=== PATIENT | female | born 1990 | race Caucasian/White ===

== ENCOUNTER 2020-08-13 10:18 | Outpatient (REF) | payer OTHER, SELFPAY ==
[2020-08-13 11:10] LABS: Baso%MD 0.8 %; Eos%MD 4.1 %; Hematocrit 36.6 % (37-47); Hemoglobin 11.6 g/dl (12.0-16.0); IG%MD 0.2 %; Lymph%MD 35.5 %; Mean Corpuscular HGB Conc 31.7 g/dl (31.0-35.0); Mean Corpuscular Hemoglobin 25.9 pg (27.0-33.0); Mean Corpuscular Volume 81.7 fL (80-98); Mean Platelet Volume 12.1 fL (9.4-12.3); Mono%MD 7.5 %; Neut%MD 51.9 %; Platelet Count 325 X10*3/uL (160-400); Red Blood Count 4.48 X10*6/uL (4.20-5.50); Red Cell Distribution Width 15.5 % (11.0-16.0); White Blood Count 5.1 X10*3/uL (4.8-10.8)
[2020-08-13 11:33] LABS: Alanine Aminotransferase 10 U/L (0-31); Albumin Level 4.4 g/dL (3.5-5.0); Alkaline Phosphatase 48 U/L (39-117); Anion Gap 13 (12-20); Aspartate Amino Transferase 18 U/L (5-31); Bilirubin Total 0.6 mg/dL (0.0-1.0); Blood Urea Nitrogen 11 mg/dL (9-16); Calcium 8.8 mg/dL (8.4-10.2); Carbon Dioxide 26 mmol/L (22-29); Chloride 105 mmol/L (96-108); Estimated Glomerular Filt Rate > 60; Glucose Fasting 90 mg/dL (60-99); Potassium 4.5 mmol/l (3.3-5.1); Sodium 139 mmol/L (135-145); Total Protein 7.1 g/dL (6.5-8.0)
[2020-08-13 11:49] LABS: TSH reflex Free T4 (Prenatal) 2.35 mIU/mL (0.32-4.0)
[2020-08-13 12:13] LABS: Monotest Negative (Negative)
[2020-08-13 14:12] LABS: Band Neutrophils Percent 2 % (3-5); Eosinophils Absolute Manual 0.2 X10*3/UL (0.0-0.8); Eosinophils Percent Manual 3 % (0-4); Lymphocytes Absolute Manual 1.6 X10*3/uL (0.6-4.8); Lymphocytes Percent Manual 32 % (20-40); Microcytosis 1+; Monocytes Absolute Manual 0.4 X10*3/uL (0.0-1.2); Monocytes Percent Manual 8 % (2-11); Neutrophils Absolute Manual 2.9 X10*3/uL (2.2-7.9); Neutrophils Percent Manual 55 % (45-73); RBC Morphology NOTED
[2020-08-13 14:13] LABS: Acanthocytes 1+; Ovalocytes 1+; Platelet Estimate NORMAL (NORMAL); Platelet Morphology Comment NORMAL; Schistocytes 1+
== END 2020-08-13 10:19 | disposition home or self-care (01) ==
LOC: HO.HMGCLDS 10:18
PROVIDERS: PCP Internal Medicine; Visit Provider Hospitalist
DX: R53.83 Other fatigue (principal)
CPT/HCPCS: 36415; 80053; 85007; 85027; 86308

== ENCOUNTER → 2020-10-31 11:13 | Outpatient (BNVA) | payer OTHER, SELFPAY | PROVIDERS: PCP Internal Medicine; Visit Provider Advanced Practice Midwife | DX: Z76.89 Persons encountering health services in other specified circumstances (principal) ==

== ENCOUNTER 2021-03-28 10:55 | Outpatient (REF) | payer OTHER, SELFPAY ==
[2021-03-28 14:02] LABS: Hematocrit 38.2 % (37-47); Hemoglobin 12.3 g/dl (12.0-16.0); Mean Corpuscular HGB Conc 32.2 g/dl (31.0-35.0); Mean Corpuscular Hemoglobin 27.3 pg (27.0-33.0); Mean Corpuscular Volume 84.7 fL (80-98); Mean Platelet Volume 11.5 fL (9.4-12.3); Platelet Count 312 X10*3/uL (160-400); Red Blood Count 4.51 X10*6/uL (4.20-5.50); Red Cell Distribution Width 13.3 % (11.0-16.0); White Blood Count 5.9 X10*3/uL (4.8-10.8)
[2021-03-28 14:29] LABS: Alanine Aminotransferase 17 U/L (0-31); Albumin Level 4.4 g/dL (3.5-5.0); Alkaline Phosphatase 51 U/L (39-117); Anion Gap 13 (12-20); Aspartate Amino Transferase 21 U/L (5-31); Bilirubin Total 0.4 mg/dL (0.0-1.0); Blood Urea Nitrogen 17 mg/dL (9-16); Calcium 9.2 mg/dL (8.4-10.2); Carbon Dioxide 25 mmol/L (22-29); Chloride 105 mmol/L (96-108); Cholesterol 207 mg/dL; Estimated Glomerular Filt Rate > 60; Glucose Fasting 83 mg/dL (60-99); HDL Cholesterol 63 mg/dL; Iron 100 mcg/dL (30-160); LDL Cholesterol Calculated 132 mg/dl; Percent Iron Saturation 29 % (15-50); Potassium 4.5 mmol/L (3.3-5.1); Sodium 138 mmol/L (135-145); Total Iron Binding Capacity 346 mcg/dL (228-428); Total Protein 7.3 g/dL (6.5-8.0); Triglycerides 62 mg/dL; Unsaturated Iron Binding 246 ug/dL
== END 2021-03-28 10:56 | disposition home or self-care (01) ==
LOC: HO.HMGCLDS 10:55
PROVIDERS: PCP Internal Medicine; Visit Provider Internal Medicine
DX: Z00.00 Encounter for general adult medical examination without abnormal findings (principal); R53.83 Other fatigue
CPT/HCPCS: 36415; 80053; 80061; 83540; 85027